=== PATIENT | male | born 1965 | race Caucasian/White ===

== ENCOUNTER 2016-11-07 13:10 | Emergency (ER) | payer OTHER ==
[2016-11-07 13:16] VITALS: BP 133/81; PULSE 70; RESP 16; TEMP 98.6; O2SAT 94
--- NOTE | 2016-11-07 13:23 | EDPHY ---
H & P Stated Complaint: R SIDE OF FACE RED AND SWOLLEN, BUG BITE? Time Seen by Provider: 11/07/16 13:23 - Personal History Current Tetanus Diphtheria and Acellular Pertussis (TDAP): Yes Tetanus Vaccine Date: < 10 years - Medical/Surgical History Hx Asthma: No Hx Chronic Respiratory Disease: No Hx Diabetes: No Hx Cardiac Disease: No Hx Renal Disease: No Hx Cirrhosis: No Hx Alcoholism: No Hx HIV/AIDS: No Hx Splenectomy or Spleen Trauma: No Other PMH: GOUT - Social History Smoking Status: Never smoked Constitutional: Initial Vital Signs Temperature (C) 37 C 11/07/16 13:13 Heart Rate 70 11/07/16 13:13 Respiratory Rate 16 11/07/16 13:13 Blood Pressure 133/81 H 11/07/16 13:13 O2 Sat (%) 94 11/07/16 13:13 O2 Delivery Mode Room Air Allergies/Adverse Reactions: No Known Allergies Allergy (Verified 11/07/16 13:16) Home Medications: Medication Instructions Recorded Cephalexin [Keflex (RX)] 500 mg PO TID #30 cap 11/07/16 Valacyclovir HCl [Valtrex] 1,000 mg PO TID #21 tab 11/07/16 predniSONE 40 mg PO DAILY #10 tab 11/07/16 Medical Decision Making ED Course/Re-evaluation: CHIEF COMPLAINT: Facial swelling HISTORY OF PRESENT ILLNESS: The patient is a 51 y/o male arriving with his family complaining of right-sided facial swelling and pain worsening since yesterday. He cannot identify obvious precipitating injury and does not think he was stung by an insect or exposed to allergic trigger. He has no known allergies, prior skin infections, or shingles. It is not pruritic, but is mildly warm. He denies fever or systemic symptoms. No other complaints. REVIEW OF SYSTEMS: A 10 point review of systems was performed and is negative with the exception of the elements mentioned in the history of present illness. PHYSICAL EXAM: HR, BP, O2 Sat, RR. Temp noted General Appearance: Alert, well hydrated, appropriate, and non-toxic appearing. Head: Cellulitic appearance to right lateral face along denominational with tenderness. Atraumatic without scalp tenderness or obvious injury Eyes: Pupils equal, round, reactive to light and accommodation, EOMI, no trauma , no injection. Ears: Scarring on right TM, otherwise clear bilaterally, no perforation, normal landmarks Nose: Atraumatic, no rhinorrhea, clear. Throat: There is no erythema or exudates, no lesions, normal tonsils, mucus membranes moist. Neck: Supple, nontender, no lymphadenopathy. Respiratory: No retractions, no distress, no wheezes, and no accessory muscle use. Lungs are clear to auscultation bilaterally. Cardiovascular: Regular rate and rhythm, no murmurs, rubs, or gallops. Good capillary refill all extremities. Gastrointestinal: Abdomen is soft, nontender, non-distended, no masses, no rebound, no guarding, no peritoneal signs. Musculoskeletal: Normal active ROM of all extremities, atraumatic. Neurological: Alert, appropriate, and interactive. Nonfocal neuro exam. Skin: No rashes, good turgor, no nodules on palpation. Past medical history: Recurrent ear infections as child. Past surgical history: denies Family history: noncontributory Social history: Family at bedside. Lives in [place]. PCP: Dr. Tan DIFFERENTIAL DIAGNOSIS: The differential diagnosis included but was not limited to cellulitis, contact dermatitis, shingles, anaphylactoid reaction, urticarial reaction, and other infectious causes for skin rash. MEDICAL DECISION MAKING: This is a healthy 51 y/o male who presents with an erythematous, warm, and raised area along his right lateral face and temporal region. This could represent cellulitis, allergic reaction, or early shingles. He does not have any systemic signs or symptoms. He will be discharged with scripts for Keflex, prednisone, and valacyclovir. He understands to discontinue the Keflex and begin the valacyclovir if he develops blistering. Follow up and return precautions given. He agrees with this plan. Departure - Departure Disposition: Home, Routine, Self-Care Clinical Impression: Urticaria, Rash Cellulitis Qualifiers: Site of cellulitis: head Qualified Code(s): L03.811 - Cellulitis of head [any part, except face] Condition: Good Instructions: Cephalexin (By mouth), Contact Dermatitis (ED), Shingles (ED), Cellulitis (ED) Additional Instructions: 1. Take Keflex (antibiotic) as prescribed. If you develop blistering, stop using this medication. 2. Take prednisone as prescribed. Complete entire course. 3. Begin valacyclovir if you develop blisters as this could indicate emergent of shingles. 4. Follow up with your primary care provider for any unimproved symptoms over the next few days. 5. Return to the ED for vision changes, difficulty breathing or swallowing, or other worsening of condition. Referrals: KACI TAN [Primary Care Provider] - As per Instructions Prescriptions: Cephalexin [Keflex (RX)] 500 mg PO TID #30 cap predniSONE 40 mg PO DAILY #10 tab Valacyclovir HCl [Valtrex] 1,000 mg PO TID #21 tab Report Scribed for: Del Bell Report Scribed by: Thi Ramirez Date of Report: 11/07/16 Time of Report: 13:38
== END 2016-11-07 13:45 | disposition home or self-care (01) ==
DX: L50.9 Urticaria, unspecified (principal); L03.811 Cellulitis of head [any part, except face]